=== PATIENT | male | born 1975 | race Caucasian/White ===

== ENCOUNTER 2020-12-06 19:26 | Emergency (ER) | payer OTHER ==
[~2020-12-06 19:26] MED LIST: ALBUTEROL1.25 MG/3 INH; AMOX TR-K CLV1 EAC4 PO; CATAPRES 0.1MG0.1 MG PO; GLUCOPHAGE500 MG PO; KENALOG CREAM 015 GM TOP; NORVASC10 MG PO; PRINIVIL20 MG PO; ROBITUSSIN AC480 ML PO; TESSALON PERLE100 MG PO; ZESTRIL 40 MG T40 MG PO; ZESTRIL40 MG PO; ZITHROMAX250 MG PO
[2020-12-06 21:46] LABS: HEMOGLOBIN 14.9 gm/dl (14.0-17.5); RED BLOOD COUNT 5.23 M/UL (4.20-5.50); WHITE BLOOD COUNT 11.4 K/UL (4.5-11.0)
[2020-12-06 22:01] LABS: BUN/CREATININE RATIO 19 (0-10)
[2020-12-07] MEDS ORDERED: LISINOPRIL40 MG PO (01:56)
[2020-12-07] MEDS ORDERED: AMLODIPINE BESY10 MG PO (01:56)
== END 2020-12-07 02:00 | disposition home or self-care (01) ==
LOC: ER1 19:26
PROVIDERS: Emergency Medicine
DX: R07.9 Chest pain, unspecified (principal); I10 Essential (primary) hypertension; F17.200 Nicotine dependence, unspecified, uncomplicated; Z86.16 Personal history of COVID-19; Z87.01 Personal history of pneumonia (recurrent)
CPT/HCPCS: 80053; 82550; 82553; 83874; 84484; 85025; 85379; 93005; 99285; Q9967

== ENCOUNTER → 2022-06-12 | Emergency (ER) | payer OTHER ==
[~2022-06-12] MED LIST changes: +AMLODIPINE BESY10 MG PO; +LISINOPRIL40 MG PO
== END | disposition home or self-care (01) ==
LOC: ER1 15:03
DX: J06.9 Acute upper respiratory infection, unspecified (principal); R19.7 Diarrhea, unspecified; Z20.822 Contact with and (suspected) exposure to COVID-19; I10 Essential (primary) hypertension; E11.9 Type 2 diabetes mellitus without complications
CPT/HCPCS: 0240U; 99283